=== PATIENT | female | born 1950 | race Caucasian/White ===

== ENCOUNTER 2018-12-01 13:02 | Emergency (ER) | payer OTHER ==
[~2018-12-01] VITALS: Ht 162.6 cm; Wt 90.0 kg
[~2018-12-01 13:02] MED LIST: AMIT50TA3 PO; ARIP30TA4 PO; ASPI-535 PO; ENAL5TAB89 PO; FERR-55 PO; FLUO20CA38 PO; FOLI-49 PO; GABA-526 PO; GLIP5TAB13 PO; MTF1000T PO; SIMV80TA18 PO
[2018-12-01 13:31] VITALS: BP 124/59; PULSE 71; RESP 18; Ht 162.6 cm; Wt 90.0 kg
[2018-12-01] MEDS ORDERED: NAPR-985 PO (15:12)
[2018-12-01] MEDS ORDERED: ONDA4TAB14 PO (15:31)
[2018-12-01] MEDS ORDERED: TRAM50TA2 PO (15:31)
--- NOTE | 2018-12-01 15:58 | ERD ---
ER Documentation Chief Complaint Chief Complaint rt leg pain /numbness x 5 days , fall and back injury x 1 month ago HPI 68-year-old female presenting with right leg pain. Patient has some numbness and pain to the posterior aspect of the right knee. She denies any recent falls or injuries. She has not taken medications for her symptoms. Denies any swelling noted. Denies chest pain or shortness of breath. Medical history diabetes, hyperlipidemia. Surgical history denies. Social history denies ROS All systems reviewed and are negative except as per history of present illness. Medications Home Meds Active Scripts Ondansetron (Ondansetron Odt) 4 Mg Tab.rapdis, 4 MG PO Q6H PRN for NAUSEA AND/OR VOMITING, #10 TAB Prov:DAMON SANTILLAN PA-C 12/01/18 Tramadol HCl (Tramadol HCl) 50 Mg Tablet, 50 MG PO Q4 PRN for PAIN, #20 TAB Prov:DAMON SANTILLAN PA-C 12/01/18 Naproxen* (Naprosyn*) 500 Mg Tablet, 500 MG PO BID PRN for PAIN AND/OR INFLAMMATION, #30 TAB Prov:DAMON SANTILLAN PA-C 12/01/18 Reported Medications Aripiprazole* (Abilify*) 30 Mg Tablet, 30 MG PO 05/10/11 Fluoxetine Hcl* (Prozac*) 20 Mg Capsule, 20 MG PO DAILY 05/10/11 Amitriptyline Hcl* (Amitriptyline Hcl*) 50 Mg Tablet, 50 MG PO HS 05/10/11 Folic Acid* (Folic Acid*) 1 Mg Tablet, 1 MG PO DAILY 05/10/11 Ferrous Sulfate* (Ferrous Sulfate*) 325 Mg Tablet, 325 MG PO DAILY 05/10/11 Enalapril (Enalapril) 5 Mg Tablet, 5 MG PO DAILY 05/10/11 Aspirin Ec (Aspir 81) 81 Mg Tablet.dr, 81 MG PO DAILY 05/10/11 Simvastatin* (Simvastatin*) 80 Mg Tablet, 80 MG PO HS 05/10/11 Glipizide* (Glipizide*) 5 Mg Tablet, 5 MG PO DAILY 05/10/11 Metformin* (Glucophage*) 1,000 Mg Tablet, 1000 MG PO BID 05/10/11 Gabapentin* (Gabapentin*) 600 Mg Tablet, 600 MG PO TID 05/10/11 Allergies Allergies: Coded Allergies: No Known Allergy (Unverified , 05/10/11) PMhx/Soc History of Surgery: Yes (WRIST SURG 2010) Anesthesia Reaction: No Hx Neurological Disorder: No Hx Respiratory Disorders: No Hx Cardiac Disorders: Yes (HIGH CHOLES) Hx Psychiatric Problems: Yes (ANXIETY, DEPRESSION) Hx Miscellaneous Medical Probl: No Hx Alcohol Use: Yes (SOCIAL) Hx Substance Use: No Hx Tobacco Use: No Smoking Status: Never smoker FmHx Family History: No diabetes, No coronary disease, No other Physical Exam Vitals Vital Signs Date Temp Pulse Resp B/P (MAP) Pulse Ox O2 O2 Flow FiO2 Time Delivery Rate 12/01/18 98.5 71 18 124/59 97 13:31 (80) Physical Exam GENERAL: The patient is well-appearing, well-nourished, in no acute distress CHEST: Clear to auscultation bilaterally. There are no rales, wheezes or rhonchi. HEART: Regular rate and rhythm. No murmurs, clicks, rubs or gallops. No S3 or S4. EXTREMITIES: Small ball noted to the right posterior knee. Mild tenderness palpation with no erythema or warmth. No fluctuance or induration. Strength 5 out of 5 with flexion and extension of the knee. No obvious deformities. NEUROLOGIC: Alert and oriented. Cranial nerves II through XII intact. Motor strength in all 4 extremities with 5 out of 5 strength. Sensation grossly i ntact. Normal speech and gait. Babinski negative. DTR 2+ throughout. SKIN: There is no apparent rash or petechiae. The skin is warm and dry. Procedures/MDM DIAGNOSTIC IMAGING REPORT Patient: MICHELLE SAMANO : 1950 Age: 68 Sex: F MR #: [id number] DOS: 12/01/18 1405 Ordering MD: JANNY SANTILLAN PA-C Location: E Room/Bed: PROCEDURE: US Lower extremity Venous. CLINICAL INDICATION: Right calf pain TECHNIQUE: Multiple sonographic images of the right lower extremity deep venous system were obtained utilizing grayscale, color-flow, compressive sonography and doppler imaging with augmentation. The images were reviewed on a PACS workstation. COMPARISON: None. FINDINGS: There is normal compressibility and flow within the right common femoral, deep femoral, superficial femoral and popliteal veins. The deep veins of the calf were incompletely visualized. In the right popliteal fossa, there is a cystic mass measuring 5.1 x 3.4 x 2.1 cm that likely reflects a Benson's cyst. IMPRESSION: No sonographic evidence for deep venous thrombosis in the right lower extremity. In the right popliteal fossa, there is a cystic mass measuring 5.1 x 3.4 x 2.1 cm that likely reflects a Benson's cyst. ER Course: Kong wrap applied to right knee. Crutches offered however patient declined. MDM: 68-year-old female presenting with right knee pain. I have low suspicion for acute fracture dislocation. I have low suspicion for infectious process. Patient has symptoms consistent with popliteal Benson's cyst. Patient's pain is likely associated with Benson's cyst and is discharged with supportive medications. Patient states that the pain is causing her nausea so I will discharge with antinausea medications. I have low suspicion for acute fracture dislocation. Patient is discharged with strict ER precautions and told to follow-up with primary care within 1 to 2 days for close evaluation. Patient is told symptoms change or worsen to return immediately to the ER. All questions answered at discharge Departure Diagnosis: Primary Impression: Bakers cyst Condition: Stable Patient Instructions: Benson's Cyst Referrals: [facility] YOU HAVE RECEIVED A MEDICAL SCREENING EXAM AND THE RESULTS INDICATE THAT YOU DO NOT HAVE A CONDITION THAT REQUIRES URGENT TREATMENT IN THE EMERGENCY DEPARTMENT. FURTHER EVALUATION AND TREATMENT OF YOUR CONDITION CAN WAIT UNTIL YOU ARE SEEN IN YOUR DOCTORS OFFICE WITHIN THE NEXT 1-2 DAYS. IT IS YOUR RESPONSIBILITY TO MAKE AN APPOINTMENT FOR FOLOW-UP CARE. IF YOU HAVE A PRIMARY DOCTOR --you should call your primary doctor and schedule an appointment IF YOU DO NOT HAVE A PRIMARY DOCTOR YOU CAN CALL OUR PHYSICIAN REFERRAL HOTLINE AT IF YOU CAN NOT AFFORD TO SEE A PHYSICIAN YOU CAN CHOSE FROM THE FOLLOWING [facility] [address] [facility] [address] [facility] [address] [facility] [address] [facility] [facility] [address] [facility]. [facility] [address] Additional Instructions: FOLLOW UP WITH YOUR PRIMARY CARE PHYSICIAN TOMORROW.Return to this facility if you are not improving as expected. DAMON SANTILLAN PA-C Dec 01, 2018 15:58
== END 2018-12-01 16:16 | disposition home or self-care (01) ==
LOC: FTE 13:02
DX: M71.21 Synovial cyst of popliteal space [Baker], right knee (principal); E11.9 Type 2 diabetes mellitus without complications; Z79.82 Long term (current) use of aspirin; Z79.84 Long term (current) use of oral hypoglycemic drugs
CPT/HCPCS: 93971